=== PATIENT | female | born 1960 | race Hispanic/Latino ===

== ENCOUNTER → 2018-01-18 | Day surgery (SDC) | payer OTHER ==
[~2018-01-18] VITALS: Ht 134.6 cm; Wt 71.7 kg
[~2018-01-18] MED LIST: KETOROLAC TROME10 M1 PO; MEDROL4 M2 PO; VICODIN 5-3001 EACH PO
--- NOTE | 2018-01-18 09:33 | Operative Report ---
Operative/Inv Procedure Report Surgery Date: 01/18/18 Name of Procedure: Right shoulder arthroscopic rotator cuff repair Right shoulder arthroscopic lysis of adhesions Pre-Operative Diagnosis: Right shoulder recurrent rotator cuff tear Post-Operative Diagnosis: Same Adhesive capsulitis right shoulder Estimated Blood Loss: scant Surgeon/Cloud Software Engineer: Mildred WYNNE,Michael BATISTA Anesthesia: general endotracheal tube IV Fluids: See anesthesia record Implants: [employer] suture anchors Drains: None Specimens: None Condition: Stable Operative Indication: Patient's a 57-year-old female with a recurrent tear of her right shoulder rotator cuff. She status post repair about 6 months ago. MRI suggested a recurrent tear. She failed conservative treatment is indicated for surgical arthroscopy and repeat repair. A skilled set hands necessary provided by physician optometrist assistant Yoel Calloway weighted with camera positioning suture management and management passing throughout the case. Operative/Procedure Note Note: Once informed consent was obtained and the correct limb was identified the patient was brought to operative room placed on table in supine position. After administration of general endotracheal anesthesia the patient was placed in a beachchair position for surgical arthroscopy. The right upper chamois was prepped and draped usual sterile fashion. We able to use the same portals as previously. A posterior portal was made and the scope was introduced and the glenoid humeral joint. Diagnostic arthroscopy was carried out. There was significant scarring anteriorly about the subscapularis tendon and anterior capsule. There is no evidence of any chondral malacia of the humeral head or the glenoid. The labrum was intact. The biceps anchor was intact and the biceps tendon had already been tenotomized from the previous surgery. Inspection of the supraspinatus and infraspinous tendon revealed thinning of the tendon anteriorly and the supraspinatus. The interspinous tendon seemed to be intact. This was probed and found to be very thin. See previous sutures were noted. There were no loose anchors or loose bodies. An anterior portal was made lateral to the coracoid and a cautery device was brought into the shoulder joint. Using the cautery device on the oblique setting as well as a shaving device capsulotomy was performed with lysis of adhesions. Once this was completed we then brought the Arthrex scope into the subacromial space. We were then able to look at the bursal surface of the rotator cuff. Through a lateral portal this was probed and found to be extremely thin. We're able to bring a grasping instrument right through the rotator cuff and a decision was made to do a repair. A size triple loaded suture anchor was placed medially on the greater tuberosity and using the first pass suture device the 3 sutures were passed through the supraspinous tendon using a horizontal mattress configuration. These were passed out through a anterior portal for suture management once you' re completed this we then were able to place a lateral 5.5 anchor through which all 3 sutures were passed through the suture anchor. The suture anchor was placed without a great deal of tension and the sutures were brought down and the rotator cuff was brought down laterally to provide a nice repair of the tendon back to the bone. All sutures were then cut. The shoulder was taken through range of motion and found to be stable as far as the repair goes. We then did a limited debridement of synovial tissue on the bursal surface of the rotator cuff. The distal clavicle was inspected and the decompression and an previously been done was adequate. Shoulder was irrigated with arthroscopic saline solution and the entrance removed. Portals were closed with 3-0 nylon interrupted sutures and a sterile dressing was applied and the patient was awakened taken recovery in stable condition.
== END ==
LOC: STS 01:35
DX: M75.121 Complete rotator cuff tear or rupture of right shoulder, not specified as traumatic (principal); M75.01 Adhesive capsulitis of right shoulder
CPT/HCPCS: C9290; C9399; J0131; J0171; J0690; J2250; J2405